=== PATIENT | female | born 1990 ===

== ENCOUNTER 2016-08-01 01:28 | Emergency (ER) | payer SELFPAY ==
[2016-08-01 02:17] VITALS: BMI 35.6
--- NOTE | 2016-08-01 02:36 | OBDCSUM ---
Datetime: 08/01/2016 02:25 Discharged to, Provider: Home Follow up at, Provider: [facility] Disch Instr Activity: Normal activity Disch Instr Diet: Regular Discharge Instructions, Provider: Routine instructions given Discharge Time: 08/01/2016 02:25 Follow up in weeks, Provider: 08/05/2016 Disch Referrals: None Contraception discussed, Prov: Yes Discharge Comment, Provider: Return to hospital if increased, bleeding, pain, temp Discharge Diagnosis Prov Other: False labor Contraception after Delivery: Undecided
--- NOTE | 2016-08-01 02:36 | OBHP ---
Datetime: 08/01/2016 02:27 IP Adm Impression: Term, intrauterine IP Admit Plan: Observation/Evaluation; Discharge home Admit Comment, IP Provider: Patient is a @ 37.1 wks with contractions and loss of possible m ucous plug, denies vaginal bleeding, leaking, +FM, no urinary complaints. Patient reports no antenata l problems, previous x1 no issues, no medical/surgical problems, no allergies, no medication exc ept PNV VE=1/thick/high SMJ=344 mod destiny, +accels, no decels TOCO = ctxnign q 7-10 mins A/P 1. Patient presents with contractions and loss of mucous plus, 1cm on exam. Patient is not in labo r. 2. FHR reactive 3. Patient has f/u appointment in [facility] this saturday 08/05. Encouraged patient to keep appt and gave labor precations Pelvic Type - PN: Adequate Extremities - PN: Normal Abdomen - PN: Normal Back - PN: Normal Breast - PN: Normal Lungs - PN: Normal Heart - PN: Normal Thyroid - PN: Normal Neurologic - PN: Normal HEENT - PN: Normal General - PN: Normal FHR - Baseline A Provider: 120 Contraction Comments Provider: q 7-10 mins Vital Signs Provider: Reviewed; Within Normal Limits IP Chief Complaint: Uterine contractions NICHD Variability Prov Fetus A: Moderate 6-25bpm NICHD Accel Fetus A IP Provider: 15X15 FHR Category Provider Fetus A: Category I NICHD Decel Fetus A IP Provider: None Dilatation, Provider: 1 Effacement, Provider: thick Station, Provider: high Genitourinary Exam: Normal DTRs - PN: Normal
== END 2016-08-01 02:45 | disposition home or self-care (01) ==
LOC: H.EROB2 01:28
DX: O47.1 False labor at or after 37 completed weeks of gestation (principal); Z3A.37 37 weeks gestation of pregnancy

== ENCOUNTER 2016-08-09 13:33 | Inpatient (IN) | payer MEDICAID, SELFPAY ==
[2016-08-09 13:58] VITALS: BMI 36.3
[2016-08-09] MEDS: Lactated Ringer's 1,000 ML IV SCH ×2 (14:30→16:00)
--- NOTE | 2016-08-09 14:46 | OBADHP ---
Datetime: 08/09/2016 14:15 Admit Comment, IP Provider: iup AT 38W (edc august 21) c/o CTX since 7am; Every 5-10m. She no sabas twice during ther day she had VB in toilet (bright red); No SROM; +FM care: [facility] Uterine synechae which resolved chart rev'd PMH: denies PSH: denies NKA PsoH: no smoking ETOH drugs A; IUP at 38w painful CTX latent phase of labor PLAN: Admit to L_D IVF lab work pain management, labor, augmentatoin, delivery and discussed. Pelvic Type - PN: Adequate Extremities - PN: Normal Abdomen - PN: Normal Back - PN: Normal Breast - PN: Not Done Lungs - PN: Normal Heart - PN: Normal Thyroid - PN: Normal Neurologic - PN: Normal HEENT - PN: Normal General - PN: Normal Presentation-Admit: Vertex IP Fetus A Comments: Sonogram cephalic FHR - Baseline A Provider: 140 Membranes, Provider: Intact Contraction Comments Provider: + Comments, ACOG Physical Exam: Exam Noel 7-8lb ROS: Geneeral no weakness; no fatigue HEENT: No MICHAUD; no visual dist Resp: No SOB; no Cough CV: NO CP; no palpitations GI: No N/V/D : No F/U/D MS: NO joint pain Pool Provider: Negative IP Hx Assessment: The History has been Reviewed and is Current IP Chief Complaint: Uterine contractions; Vaginal bleeding NICHD Variability Prov Fetus A: Moderate 6-25bpm NICHD Accel Fetus A IP Provider: 15X15 FHR Category Provider Fetus A: Category I Dilatation, Provider: 2 Effacement, Provider: 50 Station, Provider: -2 Genitourinary Exam: Normal DTRs - PN: Normal EGA AdmitDate IP: 38.2 IP Adm Impression: Term, intrauterine ; Active labor IP Admit Plan: Admit to unit Datetime: 08/01/2016 02:27 Vital Signs Provider: Reviewed; Within Normal Limits NICHD Decel Fetus A IP Provider: None
[2016-08-09] MEDS ORDERED: Nalbuphine 20 mg/ml Inj (1 ml) IVP ONE (15:00)
[2016-08-09 15:16] LABS: HEMATOCRIT 35.8 % (34.0-47.0); RED CELL DISTRIBUTION WIDTH 15.2 % (11.5-14.5); WHITE BLOOD COUNT 7.8 K/uL (4.8-10.8)
[2016-08-09 15:25] VITALS: BP 118/81; PULSE 85; RESP 18; O2SAT 99
--- NOTE | 2016-08-09 16:16 | OBPN ---
Datetime: 08/09/2016 16:14 IP Progress Plan Other: pain management/discussion about augmentation IP Progress Impression: Normal progression of labor; Reassuring heart rate IP Informed Consent Obtain: Vaginal Delivery; Risks, Benefits and Alternatives Discussed IP Progress Plan: Continue present management Pool Provider: Negative Membranes, Provider: Intact Contraction Comments Provider: 5m 5m FHR - Baseline A Provider: 135 Presentation-Admit: Vertex IP Progress Note Comment: c/o more pain...wants to wait for her ...latnent phase of labor NICHD Accel Fetus A IP Provider: 15X15 FHR Category Provider Fetus A: Category I NICHD Variability Prov Fetus A: Moderate 6-25bpm Dilatation, Provider: 2-3 Effacement, Provider: 75 Station, Provider: -2 NICHD Decel Fetus A IP Provider: None Datetime: 08/09/2016 14:15 IP Fetus A Comments: Sonogram cephalic Datetime: 08/01/2016 02:27 Vital Signs Provider: Reviewed; Within Normal Limits
[2016-08-09 17:30] VITALS: TEMP 98
[2016-08-09] MEDS ORDERED: Lactated Ringer's 1,000 ML IV ONE (19:26)
[2016-08-09] MEDS ORDERED: Fentanyl/Bupivacaine HCl 250 ML EPI ONE (19:34)
--- NOTE | 2016-08-09 19:34 | OBPN ---
Datetime: 08/09/2016 19:20 IP Progress Impression: Normal progression of labor; Reassuring heart rate IP Informed Consent Obtain: Vaginal Delivery; Risks, Benefits and Alternatives Discussed IP Progress Plan: Continue present management Pool Provider: Negative Membranes, Provider: Bulging Contraction Comments Provider: + FHR - Baseline A Provider: 130 Presentation-Admit: Vertex IP Progress Note Comment: Notified that sheis feeling more CTX pain. She decided that she did not w ant pain medication. She wanted to wait for her . When he came, she still did not want pain meds. She wanted to ambulate btu she did take Acetamenophen... Checked by Rosangela earlier 4cm...again 4cm A; Latent phase of labor PLAM: pain management discussed. She still wants to ambulate even thoguh she has pain. NICHD Accel Fetus A IP Provider: 15X15 FHR Category Provider Fetus A: Category I NICHD Variability Prov Fetus A: Moderate 6-25bpm Dilatation, Provider: 4 Effacement, Provider: 75 Station, Provider: -2 NICHD Decel Fetus A IP Provider: None
[2016-08-09] MEDS ORDERED: Lidocaine 2% PF (10 ml) Amp ONE (20:01)
--- NOTE | 2016-08-09 23:16 | OBPN ---
Datetime: 08/09/2016 23:10 IP Progress Impression: Normal progression of labor; Reassuring heart rate IP Informed Consent Obtain: Vaginal Delivery; Risks, Benefits and Alternatives Discussed IP Progress Plan: Continue present management Contraction Comments Provider: 2-5m FHR - Baseline A Provider: 130 Presentation-Admit: Vertex IP Progress Note Comment: Notified earlier she was 7cm at 21:30pm. She decided on epidural at 7-8pm . She had SROM clear fluid shortly after. She feels comfortable now. +FM A: Active phase of labor PLAN: observe labor progress; discused nipple stim by pt; will consider Pitocin augmentation NICHD Accel Fetus A IP Provider: 15X15 FHR Category Provider Fetus A: Category I NICHD Variability Prov Fetus A: Moderate 6-25bpm Dilatation, Provider: 8-9 Effacement, Provider: 100 Station, Provider: -1 NICHD Decel Fetus A IP Provider: None Datetime: 08/09/2016 21:40 Vital Signs Provider: Reviewed; Within Normal Limits
[2016-08-09] MEDS ORDERED: Oxytocin 30 units/LR 500ML 30 U/500 ML BAG IV ONE (23:25)
--- NOTE | 2016-08-10 02:20 | OBPN ---
Datetime: 08/10/2016 02:00 IP Progress Impression: Reassuring heart rate IP Informed Consent Obtain: Vaginal Delivery; Risks, Benefits and Alternatives Discussed IP Procedures: Intrauterine Pressure Catheter; Amnio Infusion IP Progress Plan: Continue present management; Augmentation Pool Provider: Positive Membranes, Provider: Ruptured Amniotic Fluid Color, Provider: Clear Contraction Comments Provider: 2-4m FHR - Baseline A Provider: 140 IP Fetus A Comments: occasional decel/good recovery (not regular) Presentation-Admit: Vertex IP Progress Note Comment: Notified that she was anterior lip... SVE Anterior lip (9cm) IUPC placed to better montior CTX pattern/amnioinfuse NS...She stopped nipple stim...Pitocin augme ntation FHR Category Provider Fetus A: Category II Dilatation, Provider: 9 Effacement, Provider: 100 Station, Provider: -1 NICHD Decel Fetus A IP Provider: Early
[2016-08-10] MEDS ORDERED: Sodium Chloride 0.9% 1,000 ML IV SCH (02:30)
[2016-08-10] MEDS ORDERED: Oxytocin 30 units/LR 500ML 30 U/500 ML BAG IV SCH (02:32)
[2016-08-10] MEDS ORDERED: Ampicillin 2 GM in Sodium Chloride 0.9% 100 ML IVPB SCH (04:00)
[2016-08-10] MEDS ORDERED: Gentamicin 80mg/50ml NS 80 MG/50 ML BAG IVPB SCH (04:00)
[2016-08-10] MEDS ORDERED: AMPicillin 2 GM in Sodium Chloride 0.9% 100 ML IVPB SCH (04:00)
[2016-08-10 04:33] LABS: BASO # 0.1 K/uL (0.0-0.2); BASO % 0.6 % (0.0-2.0); HEMATOCRIT 35.6 % (34.0-47.0); LYMPH # 0.8 K/uL (1.0-4.3); LYMPH % 4.8 % (20.0-40.0); MEAN CORPUSCULAR HEMOGLOBIN 27.9 pg (27.0-31.0); MEAN CORPUSCULAR HGB CONC 33.3 g/dL (33.0-37.0); MEAN PLATELET VOLUME 9.1 fl (7.2-11.7); MONO # 1.1 K/uL (0.0-0.8); MONO % 6.4 % (0.0-10.0); NEUT # 15.1 K/uL (1.8-7.0); NEUT % 88.2 % (50.0-75.0); PLATELET COUNT 242 K/uL (130-400); RED CELL DISTRIBUTION WIDTH 15.2 % (11.5-14.5); WHITE BLOOD COUNT 17.1 K/uL (4.8-10.8)
[2016-08-10] MEDS ORDERED: Clindamycin 600 MG in Sodium Chloride 0.9% 100 ML IVPB SCH (05:00)
[2016-08-10 05:15] LABS: NEUTROPHIL 92 % (42-75); TOTAL CELLS COUNTED 100
--- NOTE | 2016-08-10 07:06 | OBPN ---
Datetime: 08/10/2016 07:00 IP Progress Impression: Reassuring heart rate IP Informed Consent Obtain: Vaginal Delivery; Risks, Benefits and Alternatives Discussed IP Progress Plan: Continue present management; Augmentation FHR - Baseline A Provider: 150 IP Fetus A Comments: caput noted NICHD Accel Fetus A IP Provider: 15X15 FHR Category Provider Fetus A: Category I NICHD Variability Prov Fetus A: Moderate 6-25bpm Dilatation, Provider: 10 Effacement, Provider: 100 Station, Provider: 0 Datetime: 08/10/2016 04:20 Contraction Comments Provider: 2-3m Presentation-Admit: Vertex IP Progress Note Comment: LATE ENTRY - Notified that she had a temp 100.8 at 4am ... FHR some decels noted. She had blood culture drawn and started on Ab. Pitocin was not started. Asked that SVE to be done (fully dilated) Last sono 6lb 14oz (july 28); previous 7lb A: Second stage of labor / intrapartum fever PLAN: Continue antibiotics / will start pushing with epidural on. If not progress, will try pushing wi th epidural off Vital Signs Provider: Reviewed; Within Normal Limits NICHD Decel Fetus A IP Provider: None
--- NOTE | 2016-08-10 07:15 | OBPN ---
Datetime: 08/10/2016 07:00 Membranes, Provider: Ruptured Amniotic Fluid Color, Provider: Clear Presentation-Admit: Vertex IP Progress Note Comment: She attempted pushing for 30m earlier with epidural on; no progress...Epid ural was shut off. She started to push on and off since 6am SVE no change CTX q2-4m A: Second stage of labor PLAN: continue pushing NICHD Decel Fetus A IP Provider: None
--- NOTE | 2016-08-10 07:56 | OBDS ---
MATERNAL INFORMATION Provider Comments: Over intact perineum, live female infant , 9,9. was crying spont aneously and bulb suctioned. Placenta delivered intact spontaneously. Skin to skin and delayed cord clamping done. EBL 200cc LABOR SUMMARY EDC: 08/21/2016 00:00 No. Babies in Womb: 1 LABOR INFORMATION Onset of Labor: 08/09/2016 07:00 Group B Beta Strep: Negative MEMBRANES Membranes Rupture Method: Spontaneous Rupture of Membranes: 08/09/2016 20:30 Amniotic Fluid Color: Clear Amniotic Fluid Amount: Moderate Amniotic Fluid Odor: Normal VAGINAL DELIVERY Episiotomy: None Laceration Extension: Second Degree Laceration Type: Perineal Laceration Repair Note: 1% Lidocaine infiltrated (4cc). Repaired with 2.0 Vicryl Rapide suture Sponge Count Correct: Yes Sharps Count Correct: Yes Count Comment: 2 needles one syringe 5 lap pads PRESENTATION/POSITION BABY A Presentation: Cephalic
[2016-08-10] MEDS ORDERED: Benzocaine/Menthol SPRAY TOP PRN ×2 (08:18→11:29)
[2016-08-10] MEDS ORDERED: Oxycodone/Acetaminophen 5/325 mg Tab PO PRN ×3 (08:18→11:29)
[2016-08-10] MEDS: Gentamicin 80mg/50ml NS 80 MG/50 ML BAG IVPB SCH ×2 (12:09→20:27)
[2016-08-10] MEDS: Oxycodone/Acetaminophen 5/325 mg Tab PO PRN ×2 (12:17→19:09)
[2016-08-10] MEDS: Clindamycin 600 MG in Sodium Chloride 0.9% 100 ML IVPB SCH ×2 (13:27→21:30)
[2016-08-11] MEDS: Gentamicin 80mg/50ml NS 80 MG/50 ML BAG IVPB SCH (04:00)
[2016-08-11] MEDS: Clindamycin 600 MG in Sodium Chloride 0.9% 100 ML IVPB SCH (05:31)
[2016-08-11 07:11] LABS: HEMATOCRIT 27.5 % (34.0-47.0); MEAN CELL VOLUME 85.4 fl (81.0-99.0); MEAN CORPUSCULAR HEMOGLOBIN 28.1 pg (27.0-31.0); MEAN CORPUSCULAR HGB CONC 32.9 g/dL (33.0-37.0); RED CELL DISTRIBUTION WIDTH 14.8 % (11.5-14.5); WHITE BLOOD COUNT 17.1 K/uL (4.8-10.8)
[2016-08-11] MEDS: Oxycodone/Acetaminophen 5/325 mg Tab PO PRN (09:36)
--- NOTE | 2016-08-12 07:32 | OBPPN ---
Datetime: 08/12/2016 06:12 PP Pain Prov: Within normal limits PP Nausea Prov: Denies PP Flatus Prov: Yes PP BM Prov: No PP Flatus Prov comment: +BS PP Heart Prov: Normal PP Lungs Prov: Normal PP Abdomen/Uterus Prov: Normal PP Lochia Prov: Normal PP Extremities Prov: Normal PP C/S Incision Prov: Not Applicable PP Progress Prov: Normal PP Comments Phys Exam Prov: Fundus firm below umbilcus PP Impression Prov: Normal progression PP Plan Prov: Continue present management; Discharge PP Progress Note Prov: 26 yo , seen and examined bedside. Patient denies any overnight events. She reports mild/pelvic pain controlled w/ pain meds. OOB/Ambulating w/o dizziness. Breast/bottle f eeding w/o difficulty. Tolerating PO diet well. Lochia is less than menses in volume. Voiding free ly . Pt has passed gas but has not had a bowl movement yet. Denies fevers, chills, n/v/d, CP/SOB, li ghtheadedness and calf pain. Assessment: 26 yo , s/p on 08/10/16 @ 7:40 am tolerating pain w/ medication, tolerating oral intake, adequate urine output, doing well on PPD#2. - Hb:9 Plan: - Patient stable for discharge. - Mild/mod pain PRN: Ibuprofen 600mg PO Q6 PRN pain - Ferrous Sulfate 325 mg BID -Encourage breast feeding and ambulation - F/U with OBGYN in 6 weeks Abeba Sims PGY1 OB Hospitalist Addendum: Pt seen and examined by me. Agree w/ above. PPD 2 s/p , doing well, breast feeding. Discharge home today. (ES) IP PP Procedures: None Vital Signs Provider PP: Reviewed; Within Normal Limits
--- NOTE | 2016-08-12 07:32 | OBDCSUM ---
Datetime: 08/12/2016 06:14 Discharged to, Provider: Home Follow up at, Provider: OBGYN Disch Instr Activity: Normal activity Disch Instr Diet: Regular Discharge Instructions, Provider: Routine instructions given Discharge Diagnosis, Provider: Term Delivered Discharge Time: 08/12/2016 08:00 Follow up in weeks, Provider: 6 weeks Disch Activity Restrictions: No sexual activity; Nothing in vagina - [place], tampons, douche Discharge Comment, Provider: 26 YO had a Delivered baby girl on 08/10/16 whose weight was 3435gm , : 9,9, Patient doing well, stable for discharge. Prescription given for pain. Encourage - PNV 1 tab PO once daily - Ibuprofen 600 mg, PO Q6 PRN pain -- Ferrous Sulfate 325 mg BID Ambulate w/ caution, nothing in vagina, no heavy lifting, if excessive bleeding or fever without relief from Tylenol go to ED - Advised to F/U with Obgyn in 6 week and 2-3 days for infant with dairy grazer or PCP. Abeba Sims M.D. [employer]er PGY1 Contraception after Delivery: Undecided
== END 2016-08-12 14:35 | disposition home or self-care (01) | DRG 775 ==
LOC: H.EROB2 13:33 → H.L&D 14:23 → H.OB/GYN 08-10 09:59
PROVIDERS: ADMIT Obstetrics & Gynecology; ATTEND Obstetrics & Gynecology
PROC: 0KQM0ZZ Repair Perineum Muscle, Open Approach (ICD-10-PCS; principal; 2016-08-09)
PROC: 10E0XZZ Delivery of Products of Conception, External Approach (ICD-10-PCS; 2016-08-09)
PROC: 4A1HXCZ Monitoring of Products of Conception, Cardiac Rate, External Approach (ICD-10-PCS; 2016-08-09)
DX: O70.1 Second degree perineal laceration during delivery (principal); Z37.0 Single live birth; Z3A.38 38 weeks gestation of pregnancy

== ENCOUNTER 2017-01-30 19:08 | Emergency (ER) | payer MEDICAID, OTHER ==
[2017-01-30 19:09] VITALS: BMI 36.3
[2017-01-30 19:51] VITALS: BP 110/52; PULSE 88; RESP 16; TEMP 97; O2SAT 99
--- NOTE | 2017-01-30 20:12 | ED PDOC ---
HPI: CCC, URI, Sore Throat Time Seen by Provider: 01/30/17 19:57 Chief Complaint (Nursing): ENT Problem Chief Complaint (Provider): ear pain History Per: Patient History/Exam Limitations: no limitations Additional Complaint(s): 26yo F in Ed for eval of ear pain left ear x 3 weeks worsened without fever sore thoart or MICHAUD. also c.o of b/l itching of eyes with some draiange from eye and crusting in the AM. no coughing no sick contacts. Past Medical History Reviewed: Historical Data, Nursing Documentation, Vital Signs Vital Signs: Last Vital Signs Temp 97.0 F L 01/30/17 19:50 Pulse 88 01/30/17 19:50 Resp 16 01/30/17 19:50 BP 110/52 L 01/30/17 19:50 Pulse Ox 99 01/30/17 19:50 - Medical History PMH: No Chronic Diseases - Family History Family History: States: Unknown Family Hx - Home Medications Home Medications: Ambulatory Orders Medication Instructions Recorded Ferrous Sulfate [Feosol] 325 mg PO BID #60 tab 08/11/16 Ibuprofen [Motrin] 600 mg PO Q6 PRN #30 tab 08/11/16 Sennosides [Senokotxtra] 17.2 mg PO HS #20 tablet 08/11/16 Amoxicillin [Amoxil 500 mg Cap] 500 mg PO BID #14 cap 01/30/17 Ciprofloxacin/Dexamethasone 1 - 2 drop OD BID #1 bottle 01/30/17 [Ciprodex Otic] Polymyxin/Trimethoprim Sulfate 100 drop OD BID #1 bottle 01/30/17 [Polytrim Ophth Soln] - Allergies Allergies/Adverse Reactions: Allergies Allergy/AdvReac Type Severity Reaction Status Date / Time No Known Allergies Allergy Verified 08/09/16 13:58 Review of Systems ROS Statement: Except As Marked, All Systems Reviewed And Found Negative Constitutional: Negative for: Fever, Chills ENT: Positive for: Ear Pain Respiratory: Negative for: Cough Physical Exam - Reviewed Nursing Documentation Reviewed: Yes Vital Signs Reviewed: Yes - Physical Exam Appears: Positive for: Well, Non-toxic, No Acute Distress Head Exam: Positive for: ATRAUMATIC, NORMAL INSPECTION, NORMOCEPHALIC Skin: Positive for: Normal Color, Warm, DRY Eye Exam: Positive for: EOMI, PERRL, Conjunctival injection, Other (mild draainge noted to lacrimal side of b/l eyes) ENT: Positive for: TM Is/Are (left ear: TM swollen with exudate, canal swollen) . Negative for: Sinus Pain/Drainage, Nasal Congestion, Pharyngeal Erythema, Tonsillar Exudate, Tonsillar Swelling Cardiovascular/Chest: Positive for: Regular Rate, Rhythm Respiratory: Positive for: CNT, Normal Breath Sounds Neurologic/Psych: Positive for: Alert, Oriented - ECG O2 Sat by Pulse Oximetry: 99 Medical Decision Making Medical Decision Making: dx: OM/OE tx: amoxicillin PO and ciprodex Dx: conjunctivitis tx: polytrim f.u with pmd Disposition - Clinical Impression Clinical Impression: Otitis externa, Otitis media, Conjunctivitis - Patient ED Disposition Is Patient to be Admitted: No Counseled Patient/Family Regarding: Diagnosis, Need For Followup, Rx Given - Disposition [facility]errals: [facility] [Outside] Disposition: Routine/Home Disposition Time: 20:14 Condition: STABLE Prescriptions: Amoxicillin [Amoxil 500 mg Cap] 500 mg PO BID #14 cap Ciprofloxacin/Dexamethasone [Ciprodex Otic] 1 - 2 drop OD BID #1 bottle Polymyxin/Trimethoprim Sulfate [Polytrim Ophth Soln] 100 drop OD BID #1 bottle Instructions: Otitis Externa (ED), Otitis Media (ED) Print Language: BRUNEIAN
== END 2017-01-30 20:29 | disposition home or self-care (01) ==
LOC: H.ER 19:08
DX: H60.92 Unspecified otitis externa, left ear (principal); H10.9 Unspecified conjunctivitis

== ENCOUNTER 2017-05-09 10:01 | Day surgery (SDC) | payer SELFPAY ==
[2017-05-09] MEDS ORDERED: Maxitrol Opht Susp ONE (10:25)
[2017-05-09] MEDS ORDERED: Tetracaine 0.5% Ophth 2 ML BOTTLE ONE ×2 (10:25→14:02)
[2017-05-09] MEDS ORDERED: Hyaluronidase 200 UNITS/ML VIAL ONE (10:25)
[2017-05-09] MEDS ORDERED: Povidone Iodine 5% Opht SOLUTION ONE (10:25)
[2017-05-09] MEDS ORDERED: BSS 15 ML 30 ML IR ONE (10:25)
[2017-05-09] MEDS ORDERED: Lidocaine 1% w Epi 1:100,000 Inj ONE (10:25)
[2017-05-09 10:30] VITALS: RESP 18
[2017-05-09 10:56] VITALS: BMI 34.0
[2017-05-09] MEDS ORDERED: Midazolam 2 MG/2 ML VIAL ONE (12:37)
[2017-05-09] MEDS ORDERED: Lactated Ringer's 1,000 ML IV ONE (12:40)
[2017-05-09] MEDS ORDERED: Tetracaine 0.5% Ophth 2 ML BOTTLE OU ONE (12:45)
[2017-05-09] MEDS ORDERED: Lidocaine/Epi 1% 1:100000 20 ML IJ ONE (13:04)
[2017-05-09] MEDS ORDERED: Maxitrol Opht Susp OU ONE ×2 (13:13→13:46)
[2017-05-09] MEDS ORDERED: BSS 15 ML 15 ML IR ONE (13:43)
[2017-05-09 17:54] VITALS: BP 110/70; PULSE 68; TEMP 98.1; O2SAT 99
--- NOTE | 2017-07-11 12:43 | OP ---
PROCEDURE DATE : 05/09/2017 SURGEON: RHIANNON SALGADO MD ANESTHESIOLOGIST: BRINDA LISA MD ANESTHESIA: LOCAL / IV SEDATION PREOPERATIVE DIAGNOSIS: PTERYGIUM. POSTOPERATIVE DIAGNOSIS: PTERYGIUM. OPERATION: LAMELLAR KERATOSCLERECTOMY WITH CONJUNCTIVOPLASTY AND INTRAOPERATIVE APPLICATION OF MITOMYCIN-C. PREPARATION AND PROCEDURE: After the patient was sedated intravenously, patient was prepped and draped in the usual manner for sterile ophthalmic surgery. Through microsurgical control, an adult wire lid speculum was placed within the lids of the operative eye. Under magnification, 1% Xylocaine with Epinephrine was injected within the substance of the conjunctiva nasally in order to anesthetize and to balloon the nasal conjunctiva posterior to the head of the pterygium. Using a #15 Bard-Yanick blade, the head of the pterygium was carefully dissected in a lamellar fashion down to the base of the scar tissue at the level of the corneal stroma. After this was reflected toward the limbus , sharp-tipped Dyana scissors were utilized inferiorly and superiorly at the surgical sulcus in order to continue to dissect the head and body of the pterygium away from the limbus. The superficial conjunctiva posterior to the pterygium was incised in a curvilinear fashion from the inferior to the superior aspect. The head and body of the pterygium were sharply and bluntly dissected and then excised in total. Hemostasis was obtained using a bipolar cautery. A fresh #15 Cngs-Rrcbdh-Pndua was utilized to smooth out the corneal and scleral surface to allow proper epithelialization. At this time, Mitomycin-C applied on Weck-darshan sponge and then applied to the surgical sulcus and left in place for exactly two minutes. At the termination of the two minutes, the area was copiously irrigated with balanced salt solution. After the area was examined for hemostasis, which was found to be satisfactory, the conjunctiva was reanastomosed utilizing interrupted #8-0 Vicryl sutures. At the termination, the eye was irrigated and the conjunctiva was closed and a conjunctivoplasty was performed with interrupted #8-0 Vicryl suture. TobraDex drops were applied to the eye. POSTOPERATIVE CONDITION: The patient was brought to the post-anesthesia recovery with stable vital signs. RHIANNON SALGADO MD [facility]
== END 2017-05-09 17:45 | disposition home or self-care (01) ==
LOC: H.OPSURG 10:01
PROVIDERS: ATTEND Ophthalmology
DX: H11.003 Unspecified pterygium of eye, bilateral (principal); E66.9 Obesity, unspecified
CPT/HCPCS: 65420; 67107; J2250; J3010; J7120; J9280